=== PATIENT | female | born 1935 | race Two or more races ===

== ENCOUNTER 2017-09-30 11:28 | Emergency (ER) | payer OTHER ==
[~2017-09-30] VITALS: Ht 170.2 cm; Wt 81.6 kg
[~2017-09-30 11:28] MED LIST: ASA81 MG; CEFTIN250 MG/5 M PO; COREG CR20 MG; COZAAR25 MG; DIAZEPAM5 MG; INTESTINEX680 MG PO; LEVAQUIN750 MG PO; LIPITOR20 MG; LIPITOR40 MG; NEURONTIN600 MG; NORVASC5 MG; PEPCID20 MG; PLAVIX75 MG; SINGULAIR10 MG; SYNTHROID125 MCG; SYNTHROID150 MCG; ULTRACET
== END 2017-09-30 18:02 | disposition home or self-care (01) ==
LOC: ER 11:28
DX: I31.3 Pericardial effusion (noninflammatory) (principal); K58.8 Other irritable bowel syndrome; R10.12 Left upper quadrant pain; K57.30 Diverticulosis of large intestine without perforation or abscess without bleeding

== ENCOUNTER → 2018-12-02 | Emergency (ER) | payer OTHER ==
[~2018-12-02] VITALS: Ht 157.5 cm; Wt 83.5 kg
[~2018-12-02] MED LIST changes: +COZAAR50 MG PO; +SYNTHROID112 MCG PO
== END | disposition home or self-care (01) ==
LOC: ER 17:56
DX: K59.09 Other constipation (principal); M94.0 Chondrocostal junction syndrome [Tietze]

== ENCOUNTER 2019-04-14 12:13 | Emergency (ER) | payer OTHER ==
[~2019-04-14] VITALS: Ht 170.2 cm; Wt 81.6 kg
== END 2019-04-14 19:36 | disposition home or self-care (01) ==
LOC: ER 12:13
DX: K29.50 Unspecified chronic gastritis without bleeding (principal); R42 Dizziness and giddiness

== ENCOUNTER 2020-01-07 18:31 | Emergency (ER) | payer OTHER ==
[~2020-01-07] VITALS: Ht 170.2 cm; Wt 63.5 kg
[2020-01-08] MEDS ORDERED: PEPCID AC20 MG PO (02:21)
[2020-01-08] MEDS ORDERED: DICLOFENAC POTA50 MG PO (02:21)
== END 2020-01-08 02:31 ==
LOC: ER 18:31
DX: R07.89 Other chest pain (principal); Z20.828 Contact with and (suspected) exposure to other viral communicable diseases; M94.0 Chondrocostal junction syndrome [Tietze]

== ENCOUNTER 2020-01-24 12:48 | Emergency (ER) | payer OTHER ==
[~2020-01-24] VITALS: Ht 170.2 cm; Wt 67.1 kg
[~2020-01-24 12:48] MED LIST changes: +DICLOFENAC POTA50 MG PO; +PEPCID AC20 MG PO
[2020-01-24] MEDS ORDERED: PRILOSEC OTC20 MG (12:55)
== END 2020-01-24 19:56 | disposition home or self-care (01) ==
LOC: ER 12:48 → CPU-OBS 12:55 → ER 19:56
DX: R07.89 Other chest pain (principal); F41.1 Generalized anxiety disorder

== ENCOUNTER 2020-09-01 07:04 | Emergency (ER) | payer OTHER ==
[~2020-09-01] VITALS: Ht 170.2 cm; Wt 79.4 kg
[~2020-09-01 07:04] MED LIST changes: +PRILOSEC OTC20 MG
== END 2020-09-01 14:08 | disposition home or self-care (01) ==
LOC: ER 07:04
DX: R53.81 Other malaise (principal); F41.8 Other specified anxiety disorders